=== PATIENT | female | born 1980 | race Caucasian/White ===

== ENCOUNTER 2022-10-31 17:39 | Emergency (ER) | payer OTHER, SELFPAY ==
[2022-10-31 18:05] VITALS: BP 133/70; PULSE 89; RESP 18; TEMP 36.9; O2SAT 100
--- NOTE | 2022-10-31 18:33 | ED.URI ---
HPI - URI/Sore Throat General Chief Complaint: Upper Respiratory Infection Stated Complaint: COUGH/BODY ACHES/PINA/FLU EXPOSURE Time Seen by Provider: 10/31/22 18:15 Source: patient Mode of arrival: ambulatory Limitations: no limitations History of Present Illness HPI Narrative: Jamia is a 42-year-old female patient presenting to the clinic today with complaints of cough, runny nose, body aches, headache, and positive flu exposure. She reports that she has been exposed to flu twice. Her symptoms just began yesterday. She reports highest temperature was 99.8? F. She would like to be tested for flu. MD elicited complaint: cough, rhinorrhea, nasal congestion and other (Body aches, headache) Related Data Home Medications Medication Instructions Recorded Confirmed cetirizine 10 mg capsule (Zyrtec) 10 mg PO DAILY PRN 10/01/22 10/01/22 sumatriptan 20 mg/actuation nasal 20 mg intranasal Q2H PRN 10/01/22 10/01/22 spray (Imitrex) Allergies Allergy/AdvReac Type Severity Reaction Status Date / Time No Known Allergies Allergy Verified 10/01/22 14:35 Review of Systems Review of Systems: Pertinent positives per HPI. Patient denies any fever, chills, rash, visual changes, dizziness, shortness of breath, chest pain, palpitations, nausea, vomiting, diarrhea, constipation, abdominal pain, or any urinary issues. [facility] Past Medical History Medical History Anxiety and depression Migraines Obesity Screening mammogram, encounter for Squamous cell carcinoma of nose Surgical History Surgical History H/O squamous cell carcinoma excision (12/11/14) nose H/O tubal ligation (~2008) History of endometrial ablation (06/10/13) History of robot-assisted laparoscopic hysterectomy (06/22/15) [facility] Family History Family History Grandparent Diabetes mellitus maternal grandfather Hypertension maternal grandfather Lupus Paternal grandfather Social History Social History Smoking status: Never smoker Alcohol intake: current Alcohol use details: 2 month Substance use: never Substance use type: does not use Additional living arrangements comments: Additional occupation/education comments: Nurse Gender identity (if verbalized by the patient): Female Sexual Orientation (if Verbalized by the Patient): Straight or Heterosexual Comments At the time of my signature, I reviewed and agree with the nursing past medical, surgical, social, and family history. There is no relevant family history pertinent to the patient complaint. Exam Narrative: General: Well-developed, well nourished, in no apparent distress Head: Normocephalic, atraumatic Eyes: Pupils equally round and reactive to light bilaterally, EOM intact, sclera and conjunctive clear, no discharge, lids normal Ears: TMs intact and clear, ear canals clear, no drainage, grossly hearing normal, wears hearing aids Nose: Nares patent, clear nasal discharge, no inflammation, no sinus tenderness. Mouth: Oral pharynx without lesions or masses, good dentition, MMM. Postnasal drip Neck: Supple, trachea midline, no enlargement of anterior or posterior cervical nodes, no thyroid masses or goiter palpable. Cardio: Regular rate and rhythm, s1 and s2 normal, no murmur appreciated. Resp: Clear to auscultation bilaterally, no rhonchi, rales, wheezing or rubs Course Course Emergency Course: Portions of this record may have been created with voice recognition software. Level of Care: Express Care Visit Vital Signs Vital signs: Vital Signs Temperature 36.9 C 10/31/22 18:05 Pulse Rate 89 10/31/22 18:05 Respiratory Rate 18 10/31/22 18:05 Blood Pressure 133/70 10/31/22 18:05 Pulse Oximetry 1
== END 2022-10-31 18:51 | disposition home or self-care (01) ==
PROVIDERS: Emergency Provider Nurse Practitioner Family; PCP Registered Nurse
DX: J06.9 Acute upper respiratory infection, unspecified (principal); Z20.822 Contact with and (suspected) exposure to COVID-19
CPT/HCPCS: 87426; 87804; 99213; C9803; G0463

== ENCOUNTER → 2023-02-17 16:11 | Outpatient (CLI) | payer OTHER, SELFPAY ==
--- NOTE | ~2023-02-17 | MM_ITS ---
EXAMINATION: MM screening alex BI w kailee HISTORY: Screening mammogram TECHNIQUE: Craniocaudal and mediolateral oblique 3-D tomosynthesis images were obtained and synthetic 2-D images were generated. CAD analysis was submitted and interpreted. COMPARISON: No prior mammogram is available for comparison at this institution. BREAST PARENCHYMAL COMPOSITION: The breasts are heterogeneously dense, which may obscure small masses . FINDINGS: There are bilateral microcalcifications. Comparison with prior mammogram is recommended. If prior mammogram is unavailable, bilateral diagnostic mammography with magnification views is recomme nded, with ultrasound if required. IMPRESSION: 1. Bilateral microcalcifications 2. Comparison with prior mammogram is recommended; if not available, bilateral diagnostic mammography with magnification views is recommended, with ultrasound if required BI-RADS Category 0: Incomplete: Needs additional imaging evaluation. Reviewed, dictated and finalized at location A.
== END ==
PROVIDERS: PCP Registered Nurse; Visit Provider Obstetrics & Gynecology
DX: Z12.31 Encounter for screening mammogram for malignant neoplasm of breast (principal); R92.0 Mammographic microcalcification found on diagnostic imaging of breast
CPT/HCPCS: 77063; 77067

== ENCOUNTER 2023-03-04 12:10 | Outpatient (CLI) | payer OTHER, SELFPAY ==
--- NOTE | ~2023-03-04 | MMUS_ITS ---
EXAMINATION: MM diagnostic alex BI w kailee, US breast BI limited HISTORY: Bilateral microcalcifications on February 17, 2023 screening mammogram TECHNIQUE: Additional ML 3-D tomosynthesis images of both breasts were performed and synthetic 2-D im ages were generated. Bilateral magnification views. CAD analysis was submitted and interpreted. High resolution bilateral upper outer quadrant breast ultrasound was performed. COMPARISON: February 17, 2022 bilateral screening mammogram FINDINGS: MAMMOGRAPHIC FINDINGS: Numerous benign appearing microcalcifications are detected bilaterally. The mammographic features are benign including some calcifications with dependent layering of calcium and upright ML view consiste nt with milk of calcium. ULTRASOUND: No suspicious mass or shadowing or other significant sonographic abnormality is noted in the upper ou ter quadrant of either breast. IMPRESSION: 1. Benign calcifications; no mammographic evidence of malignancy 2. Routine annual mammographic screening is recommended BI-RADS Category 2: Benign finding(s). Reviewed, dictated and finalized at location A. IMPRESSION: 1. Benign calcifications; no mammographic evidence of malignancy 2. Routine annual mammographic screening is recommended BI-RADS Category 2: Benign finding(s).
== END 2023-03-04 12:11 | disposition home or self-care (01) ==
PROVIDERS: PCP Registered Nurse; Visit Provider Obstetrics & Gynecology
DX: R92.0 Mammographic microcalcification found on diagnostic imaging of breast (principal)
CPT/HCPCS: 76642; 77062; 77066; G0279

== ENCOUNTER 2023-03-21 13:36 | Outpatient (CLI) | payer OTHER, SELFPAY ==
--- NOTE | ~2023-03-21 | MR_ITS ---
EXAMINATION: MR breast BI wo/w con INDICATION: Bilateral breast calcifications TECHNIQUE: Axial VIBRANT pre and dynamic post contrast, Sagittal VIBRANT post contrast, Axial T2 STIR ASSET COMPARISON: No comparison MRIs available. Mammograms dated 03/04/2023, 02/17/2023, and 08/22/2019 are r eviewed CONTRAST: Multihance, 16 cc BREAST COMPOSITION: Heterogeneous fibroglandular tissue FINDINGS: RIGHT BREAST: There is moderate background parenchymal enhancement. No abnormal enhancement is presen t after contrast administration. No pathologically enlarged axillary or internal mammary lymph nodes are identified. LEFT BREAST: There is moderate background parenchymal enhancement. No abnormal enhancement is present after contrast administration. No pathologically enlarged axillary or internal mammary lymph nodes a re identified. IMPRESSION: 1. Unremarkable breast MRI. Routine screening mammography is recommended. BI-RADS Category 1: Negative Reviewed, dictated and finalized at location A.
== END 2023-03-21 13:37 | disposition home or self-care (01) ==
PROVIDERS: PCP Registered Nurse; Visit Provider Surgery
DX: R92.0 Mammographic microcalcification found on diagnostic imaging of breast (principal)
CPT/HCPCS: 77049; A9577; C8908